=== PATIENT | female | born 1950 | race Caucasian/White ===

== ENCOUNTER 2021-06-08 13:50 | Inpatient (IN) | payer MEDICARE, OTHER ==
[~2021-06-08] VITALS: Ht 157.5 cm; Wt 59.0 kg
[2021-06-08] MEDS ORDERED: POLY17PO4 PO (14:39)
[2021-06-08] MEDS ORDERED: ZOLP10TA2 PO (14:39)
[2021-06-08] MEDS ORDERED: DOCU-141 PO (14:39)
[2021-06-08] MEDS ORDERED: NALO25TA PO (14:39)
[2021-06-08] MEDS ORDERED: [UNRECOGNIZED DRUG - CODE] PO (14:39)
[2021-06-08] MEDS ORDERED: OXYC-128 PO (14:39)
[2021-06-08] MEDS ORDERED: FLUT16SP16 NS (14:39)
[2021-06-08] MEDS ORDERED: PANT40TA49 PO (14:39)
[2021-06-08] MEDS ORDERED: FLUTICASONE PROPIONATE 16 GM BOTTLE NS PRN (15:30)
[2021-06-08] MEDS ORDERED: MAGNESIUM HYDROXIDE 30 ML UDC PO PRN (15:30)
[2021-06-08] MEDS ORDERED: ZOLPIDEM TARTRATE 5 MG TABLET PO PRN (15:30)
[2021-06-08] MEDS ORDERED: BLOOD SUGAR DIAGNOSTIC 1 EACH STRIP IN ONE (15:30)
[2021-06-08] MEDS ORDERED: MAG HYDROX/AL HYDROX/SIMETH 30 ML UDC PO PRN (15:30)
[2021-06-08 15:54] VITALS: BP 126/64
[2021-06-08 16:00] VITALS: BP 126/64
[2021-06-08] MEDS: ALPRAZOLAM 1 MG TABLET PO PRN (17:23)
[2021-06-08 19:56] VITALS: BP 112/66
[2021-06-08 20:01] VITALS: BP 112/66
[2021-06-08] MEDS: DOCUSATE SODIUM 100 MG CAPSULE PO PRN (20:44)
[2021-06-09] MEDS: ALPRAZOLAM 1 MG TABLET PO PRN ×2 (01:14→07:57)
[2021-06-09] MEDS ORDERED: oxyCODONE/APAP (5/325 MG) 1 UDTAB TABLET PO PRN (05:00)
[2021-06-09 08:00] VITALS: BP 95/57
[2021-06-09] MEDS ORDERED: PANTOPRAZOLE 40 MG TABLET.DR PO SCH (09:00)
[2021-06-09] MEDS ORDERED: ALPRAZOLAM 1 MG TABLET PO PRN (09:00)
[2021-06-09] MEDS ORDERED: ESCITALOPRAM OXALATE (10 MG) 10 MG TABLET PO SCH (09:00)
[2021-06-09] MEDS ORDERED: POLYETHYLENE GLYCOL 3350 17 GM POWD.PACK PO SCH (09:00)
[2021-06-09] MEDS ORDERED: ZOLPIDEM TARTRATE 5 MG TABLET PO PRN (09:00)
[2021-06-09] MEDS: DOCUSATE SODIUM 100 MG CAPSULE PO PRN (09:08)
[2021-06-09] MEDS ORDERED: THIAMINE HCL 100 MG TABLET PO SCH (09:30)
[2021-06-10] MEDS ORDERED: MULTIPLE VIT (LYCOPENE/FA/MV,CA,IRON,MIN/LUT)1 TAB PO SCH (09:00)
== END 2021-06-09 09:30 | disposition left against medical advice (07) | DRG 882 ==
LOC: GPS 13:50
PROVIDERS: ADMIT Psychiatry & Neurology Psychiatry; ATTEND Internal Medicine
DX: F43.23 Adjustment disorder with mixed anxiety and depressed mood (principal); F10.180 Alcohol abuse with alcohol-induced anxiety disorder; F10.14 Alcohol abuse with alcohol-induced mood disorder; F32.9 Major depressive disorder, single episode, unspecified; F41.9 Anxiety disorder, unspecified; Y90.9 Presence of alcohol in blood, level not specified; F19.10 Other psychoactive substance abuse, uncomplicated
CPT/HCPCS: 87081-TC